=== PATIENT | female | born 1965 | race African-American/Black ===

== ENCOUNTER 2019-06-20 01:15 | Inpatient (IN) | payer BC ==
[2019-06-20] VITALS (7 sets, daily range): BP systolic 116–159; BP diastolic 59–117
[~2019-06-20] VITALS: Ht 160 cm; Wt 102.8 kg
[~2019-06-20 01:15] MED LIST: ACETAMINOPHEN650 M5 PO; ACYCLOVIR 400400 MG PO; ADVAIR HFA 1112 UNIT INH; ASPIRIN EC81 M1 PO; GABAPENTIN 100100 MG PO; LANTUS SUBQ; LEVAQUIN 500 M500 M2 PO; LISINOPRIL40 MG PO; MEDROL DOSPAK21 TAB PO; MULTIVITAMINS PO; NICOTINE TRANSDE7 MG TD; NORVASC10 MG PO; NOVOLOG100 UNIT/1 SUBQ; OSELB75 PO; PHENERGAN 25 MG25 M1 PO; PHENERGAN50 MG RC; PREDNISONE 10 M10 M1 PO; PROAIR HFA8.5 GM INH; TUSSIONEX PENN473 ML PO; ZOFRAN ODT4 MG PO
[2019-06-20 01:26] LABS: BE(vivo) 2.2 mmol/L (-2 to +3); HCO3 27.3 mmol/L (22.0-26.0); sO2 90.7 % (92.0-98.0)
[2019-06-20] MEDS ORDERED: NEURONTIN600 MG PO (01:26)
[2019-06-20] MEDS ORDERED: HYDROCHLOROTHIA25 M1 PO (01:27)
[2019-06-20] MEDS ORDERED: CARDIZEM CD240 MG PO (01:28)
[2019-06-20] MEDS ORDERED: ADVAIR HFA 230M12 GM INH (01:29)
[2019-06-20] MEDS ORDERED: TAMBOCOR 100 M100 M1 PO (01:30)
[2019-06-20] MEDS ORDERED: PREDNISONE 20 M20 MG PO (01:34)
[2019-06-20] MEDS ORDERED: VENTOLIN HFA 1818 GM INH (01:34)
--- NOTE | 2019-06-20 03:53 | NUR ---
CALLED REPORT TO OMID AZEVEDO
[2019-06-20 04:40] LABS: ABSOLUTE NEUTROPHILS 5.9 thou/uL (1.4-8.2); BASOPHILS 0.5 % (0.0-2.0); EOSINOPHILS 2.4 % (0.0-3.0); HEMOGLOBIN 13.4 gm/dL (12.0-15.0); LYMPHOCYTES 22.3 % (24.0-44.0); MCV 90.6 fL (80.0-100.0); MONOCYTES 3.1 % (1.0-8.0); PLATELET COUNT 225 thou/uL (150-400); POLYS 71.7 % (36.0-66.0); RBC 4.64 mil/uL (4.20-5.00); RDW 13.5 % (10.5-14.5); WBC 8.3 thou/uL (4.0-11.0)
[2019-06-20 04:53] LABS: ANION GAP 13 mmol/L (7-16); BUN 23 mg/dL (7-18); CALCIUM 9.4 mg/dL (8.5-10.1); CHLORIDE 100 mmol/L (98-107); CO2 25 mmol/L (21-32); CREATININE 1.1 mg/dL (0.6-1.0); GLUCOSE 385 mg/dL (74-106); POTASSIUM 3.4 mmol/L (3.5-5.1); SODIUM 138 mmol/L (136-145)
[2019-06-20 05:01] LABS: ALBUMIN 3.5 g/dL (3.4-5.0); MAGNESIUM 1.6 mg/dL (1.8-2.4); SGOT 14 U/L (15-37); SGPT 22 U/L (30-65); TOTAL BILIRUBIN 0.7 mg/dL (<0.1-1.0); TOTAL PROTEIN 6.9 g/dL (6.4-8.2); TROPONIN-I <0.06 ng/mL (<0.06)
--- NOTE | 2019-06-20 05:32 | NUR ---
PT ARRIVED FROM THE ER @0400. A&OX4. ON ASSESSEDMENT WHEEZING NOTED IN LUNGS. C/O OF PAIN IN LEFT EXT MEDS GIVEN SEE EMAR. ADM ASSESSMENT DOCUMENT, ORIENTED PT TO THE ROOM. IV INTACT IN RT A/C AND FLUIDS INFUSING. WILL CONT POC TILL EOS.
--- NOTE | 2019-06-20 08:13 | EKG ---
[address] [address] ELECTROCARDIOGRAM REPORT Name: TAMY BRYANT SARBJIT Room #: 426-P ADM IN M.R.#: [id number] ������������������ Admission: 06/20/19 ������������������ Attend Phys: Zane Goetz MD Discharge: ������������������ Date of : 61 Report #: [id number] ����������������������������������������������������������������� [id number] THIS REPORT FOR: //name// [facility] ED Test Date: 2019-06-20 Test Time: 03:26:24 Pat Name: TAMY BRYANT Department: Room: [facility] Gender: F Thread Checker: CAROL : 1965 Requested By: Marek Guaman Order Number: [id number] MD: Bird Ruano Measurements Intervals [place] Rate: 84 P: 44 MD: 172 QRS: 15 QRSD: 92 T: 74 QT: 445 QTc: 527 Interpretive Statements Sinus rhythm Ventricular trigeminy Poor R wave progression Prolonged QT interval Compared to ECG 08/02/2013 18:31:19 Prolonged QT interval now present Sinus tachycardia no longer present Electronically Signed On 06-20-2019 8:13:32 CDT by Bird Ruano [email or web address] ��������������������������������������������� <ELECTRONICALLY SIGNED> ���������������������������������������� By: Bird Ruano MD, FACC ��������������������������������������������� 06/20/19 0813 [id number] Bird Ruano MD, [facility] /EPI
--- NOTE | 2019-06-20 13:24 | NUR ---
Chart reviewed and assessment completed with the pt at bedside. Cm role introduced. Pt lives with her fiance in an apt. She works, drives and is indep with gait and adl's. She has health insurance through her employer and a pcp in place for f/u care. She denies any dc needs or concerns. No cm interventions identified at this time. Will remain available should needs arise.
[2019-06-21 03:52] VITALS: BP 133/78
--- NOTE | 2019-06-21 06:48 | NUR ---
PATIENT ALERT AND ORIENTED X4. UP ADLIB IN ROOM. BS MONTIORED PER ORDER. IVF DISCONTINUED ON AM SHIFT. IV TEAM WILL BE CALLED TO RESTART IV PATIENT IS A DIFFICULT STICK. C/O PAIN AND MEDICATED WITH TYLENOL WITH GOOD RESULTS. SLEPT WITH CPAP. WILL MONITOR.
[2019-06-21 08:10] VITALS: BP 136/56
--- NOTE | 2019-06-21 10:35 | NUR ---
ASSUMED PT CARE REPORT RECEIVED FROM NURSE, PT IS AOX4. ON 1 L NC. VSS. MEDICATION RECEIVED THIS AM. ACCUCHECK. INSULIN GIVEN. PT COMPLAINS THAT " I WAS NOT GIVEN MY SOLUMEDROL LAST NIGHT, I DO NOT HAVE AN IV LINE.". THIS NURSE EXPLAINS TO PATIENT THAT THERE IS NO SOLUMEDROL ORDER ON THE COMPUTER. THIS NURSE CONTACTED IV TEAM TO INSERT AN IV IN PATIENT WHO IS A "HARD STICK". PT HAS NO OTHER COMPLAINT. UP AD JUAREZ. NIXON CONTINUE TO MONITOR
[2019-06-21 16:41] VITALS: BP 152/80
--- NOTE | 2019-06-21 16:56 | NUR ---
blood sugar at 1645 is 165 . no change on insulin drip per protocol
--- NOTE | 2019-06-21 17:49 | NUR ---
blood sugar at 1745 145. no change in insulin drip
--- NOTE | 2019-06-21 18:39 | NUR ---
blood sugar 215 at 1845. accucheck increased at 0.5 nits/hour
[2019-06-21 20:13] VITALS: BP 126/56
[2019-06-22 03:10] LABS: GLYCOHEMOGLOBIN (HGB A1C) 11.4 % (4.8-5.6)
--- NOTE | 2019-06-22 03:40 | NUR ---
ASSUMED CARE OF PT @1900 PT ASSESSED AT START OF SHIFT A&OX4 WITH CONCERNS OF BLOOD SUGAR. ON HOURLY INSULIN CHECK AND INSULIN DRIP INFUSING IN RT UPPER ARM SEE EMAR AND REVIEW FOR DOCUMENTATION. UP AD JUAREZ TO THE BATHROOM AND CALLS APPROPRIATELY. PAIN MEDS GIVEN FOR LEFT SIDE PAIN SEE EMAR. GETS BREATHING TX @NIGHT AND CPAP BY BEDSIDE AT NIGHT. WILL CONT WITH POC TILL EOS.
[2019-06-22 04:13] VITALS: BP 130/75
[2019-06-22 07:42] VITALS: BP 117/80
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
[2019-06-22] MEDS ORDERED: JARDIANCE10 MG PO (08:54)
[2019-06-22] MEDS ORDERED: LANTUS100 UNIT/M SUBQ (09:28)
[2019-06-22] MEDS ORDERED: NOVOLOG100 UNIT/1 SUBQ (09:28)
[2019-06-22] MEDS ORDERED: GLUCOPHAGE XR750 MG PO (09:28)
[2019-06-22 13:03] VITALS: BP 117/80
--- NOTE | 2019-06-22 15:05 | NUR ---
DC ORDERS RECEIVED. IV REMOVED R UA. DC INSTRUCTIONS, SCRIPTS AND F/U APPOINT REVIEWED WITH PT. VOLUNTEER ESCORTED PT TO MAIN ENTRANCE.
== END 2019-06-22 14:46 | disposition home or self-care (01) | DRG 917 ==
LOC: ER 01:15 → EROBS 02:35 → 4E 02:35 → ENTRNSPT 06-22 14:16 → EDTRNSPTSTS 06-22 14:31 → 4E 06-22 14:46
PROVIDERS: Emergency Medicine; ADMIT Hospitalist
PROC: 5A09357 Assistance with Respiratory Ventilation, Less than 24 Consecutive Hours, Continuous Positive Airway Pressure (ICD-10-PCS; principal; 2019-06-20)
PROC: 5A09357 Assistance with Respiratory Ventilation, Less than 24 Consecutive Hours, Continuous Positive Airway Pressure (ICD-10-PCS; 2019-06-21)
DX: T58.91XA Toxic effect of carbon monoxide from unspecified source, accidental (unintentional), initial encounter (principal); J96.21 Acute and chronic respiratory failure with hypoxia; J44.0 Chronic obstructive pulmonary disease with (acute) lower respiratory infection; J68.0 Bronchitis and pneumonitis due to chemicals, gases, fumes and vapors; Z68.41 Body mass index [BMI] 40.0-44.9, adult; F17.210 Nicotine dependence, cigarettes, uncomplicated; I10 Essential (primary) hypertension; E66.01 Morbid (severe) obesity due to excess calories; E87.6 Hypokalemia; E83.42 Hypomagnesemia; E11.65 Type 2 diabetes mellitus with hyperglycemia; E78.5 Hyperlipidemia, unspecified; I48.91 Unspecified atrial fibrillation; Z90.710 Acquired absence of both cervix and uterus; Z79.1 Long term (current) use of non-steroidal anti-inflammatories (NSAID); Z79.899 Other long term (current) drug therapy; Y92.89 Other specified places as the place of occurrence of the external cause
CPT/HCPCS: 10084; 10183